=== PATIENT | female | born 1935 | race Caucasian/White ===

== ENCOUNTER 2022-10-08 13:06 | Outpatient (CLI) | payer MEDICARE, BC, SELFPAY | END 2022-10-08 13:07 | disposition home or self-care (01) | LOC: AMB 10-10 10:19 | PROVIDERS: PCP Family Medicine; Visit Provider Emergency Medicine Emergency Medical Services | DX: M79.605 Pain in left leg (principal) | CPT/HCPCS: A0425; A0429 ==

== ENCOUNTER 2022-10-08 13:25 | Emergency (ER) | payer MEDICARE, BC, SELFPAY ==
[2022-10-08 13:33] VITALS: BP 143/78; PULSE 87; RESP 16; TEMP 36.6; O2SAT 96; BMI 22.5
--- NOTE | 2022-10-08 13:54 | CRLHL7_ITS ---
For Patients: As a result of the Century Cures Act, medical imaging exams and procedure reports are released immediately into your electronic medical record. You may view this report before your referring provider. If you have questions, please contact your health care provider. INDICATION: Left leg pain and redness. FINDINGS: Left lower extremity venous ultrasound was performed using grayscale imaging with color Doppler spectral analysis. The left common femoral vein, superficial femoral vein and popliteal vein are all fully compressible with spontaneous venous flow and augmentation. The peroneal vein, posterior tibial vein, greater saphenous vein an profunda femoral vein are patent. The contralateral right common femoral vein is patent. IMPRESSION: No evidence of deep venous thrombosis in the left lower extremity veins. Dictated by Jonathan William MD @ 10/08/2022 3:44:22 PM (Electronically Signed)
--- NOTE | 2022-10-08 14:19 | ED.GENADULT ---
HPI - General Adult General Date Seen: 10/08/22 Chief complaint: Extremity Pain/Injury, Lower Stated complaint: Knee Pain Time Seen by Provider: 10/08/22 13:30 Source: patient Mode of arrival: ambulatory Limitations: no limitations History of Present Illness HPI narrative: Patient is an 87-year-old woman who is here with her daughter, with whom she lives, for evaluation of pain in her left calf. She says she was watching TV last night, and when she got up she noticed that she had pain when she walked, in her left calf area. It is not swollen but she has noted some redness in a patchy pattern on the back of her calf up to the level of her knee. She does not have any redness farther up than that. She says otherwise she has been feeling fine, she denies any fevers, chills, nausea, vomiting, shortness of breath, chest pain. He denies prior history of DVT. She says in general her health is good. She does not smoke. She is having difficulty with weight-bearing, she says that she hold her ankle still in dorsiflexion and walks on her heel, she is able to put weight on it, but when she tries to push off with her foot, she has sharp pain in her calf and is not able to walk that way. She took Tylenol last night before bed and does feel that that was helpful although by this morning it had worn off. She also says that last night when she was walking her foot looked reddish purple on top, but that is better now. Related Data Home Medications Medication Instructions Recorded Confirmed No Known Home Medications 10/08/22 10/08/22 Allergies Allergy/AdvReac Type Severity Reaction Status Date / Time No Known Drug Allergies Allergy Verified 10/08/22 13:32 Review of Systems Status of ROS: Reports: 6 or more systems reviewed and unremarkable except as noted in History and below PFSH PFS Social History Smoking Status: Never smoker How often do you have a drink containing alcohol: monthly or less AUDIT-C Alcohol total score: 1 Non-prescribed substance use: denies use service: No Exam Narrative: Exam Narrative: Vital signs as noted above. In general, an alert, well-appearing patient. Looks comfortable. Breathing easily. Head: Normocephalic, atraumatic. Eyes: Pupils are equal reactive. Extraocular movements are full. Conjunctivae are normal. Anicteric. ENT: Mucous membranes are moist. Neck: Supple without lymphadenopathy. Heart: Regular rate and rhythm. No murmur or rub. Lungs: Clear bilaterally. No increased work of breathing, crackles or wheezes. Abdomen: Soft and nontender. No organomegaly. Extremities: Well perfused. No edema. On the back of her left calf she has patchy erythema without warmth extending from just distal to mid calf up to the back of her knee. The knee itself is not painful and she has full range of motion, no effusion or erythema. Foot is normal in appearance, pulses intact, sensation is normal. Neurologic: Patient is alert and oriented to person and place. Speech is fluent. Face is symmetric. Moves all extremities equally. Affect: Normal. Skin: Warm and dry. Well perfused. Const: Vital Signs, click to edit/add: Vital Signs - 24 hr 10/08/22 13:33 Temperature 97.8 F Pulse Rate [Left P ulse Oximeter] 87 Respiratory Rate 16 Blood Pressure [Ri ght Upper Arm] 143/78 H Pulse Oximetry 96 Oxygen Delivery Me thod Room Air Documenting provider has reviewed patient's vital signs: yes Course Course Hospital Course: I did do a lower extremity Doppler to rule out DVT or superficial thrombophlebitis. This was read by Radiology as negative. She denies any injury, I do not think x-rays are going to be revealing. She does not have significant edema and does not have any systemic signs or symptoms. With pain and redness, I think it is prudent to cover for possible developing cellulitis. Will prescribe Keflex. If she is not improving over the next couple of days, follow-up with primary care. For worsening, more severe pain, significant swelling, redness, new symptoms such as fever, vomiting or chills, return to the emergency department for re-evaluation. Vital Signs Vital signs: Initial Vital Signs Temperature 97.8 F 10/08/22 13:33 Temperature Source Temporal Artery Scan 10/08/22 13:33 Pulse Rate 87 10/08/22 13:33 Pulse Rhythm Regular 10/08/22 13:33 Respiratory Rate 16 10/08/22 13:33 Blood Pressure 143/78 H 10/08/22 13:33 Blood Pressure Mean 99 10/08/22 13:33 Blood Pressure Position Sitting 10/08/22 13:33 Pulse Oximetry 96 10/08/22 13:33 Oxygen Delivery Method Room Air 10/08/22 13:33 Vital Signs Temperature 97.8 F 10/08/22 13:33 Pulse Rate 87 10/08/22 13:33 Respiratory Rate 16 10/08/22 13:33 Blood Pressure 143/78 H 10/08/22 13:33 Pulse Oximetry 96 10/08/22 13:33 Oxygen Delivery Method Room Air 10/08/22 13:33 Temperature 97.8 F 10/08/22 13:33 Pulse Rate 87 10/08/22 13:33 Respiratory Rate 16 10/08/22 13:33 Blood Pressure 143/78 H 10/08/22 13:33 Pulse Oximetry 96 10/08/22 13:33 Oxygen Delivery Method Room Air 10/08/22 13:33 Discharge Plan Discharge Clinical Impression: Cellulitis Patient Disposition: Home, Self-Care Condition: Stable Instructions: Cellulitis (ED) Additional Instructions: Antibiotic as prescribed. You can use a boot if you like for comfort. If you are not improving over the next couple of days, you should be seen in your primary care clinic for re-evaluation. You can use Tylenol as needed. If at any point you are worsening, have significant worsening redness, swelling, pain, or new symptoms such as fever, chills or vomiting, return to the emergency department. Prescriptions: No Action No Known Home Medications Follow Up/Referrals: Berna Solis MD [Primary Care Provider] - Stand Alone Forms: [email or web address] Info Instructions
== END 2022-10-08 16:28 | disposition home or self-care (01) ==
PROVIDERS: Emergency Provider Emergency Medicine; PCP Family Medicine
DX: L03.116 Cellulitis of left lower limb (principal)
CPT/HCPCS: 93971; 99283; 99284

== ENCOUNTER 2022-10-13 07:44 | Outpatient (CLI) | payer MEDICARE, BC, SELFPAY | END 2022-10-13 07:45 | disposition home or self-care (01) | PROVIDERS: PCP Family Medicine; Visit Provider Family Medicine | DX: L03.90 Cellulitis, unspecified (principal); E55.9 Vitamin D deficiency, unspecified; E78.5 Hyperlipidemia, unspecified | CPT/HCPCS: 80053; 80061; 82306; 82607 ==

== ENCOUNTER 2022-10-29 16:47 | Emergency (ER) | payer MEDICARE, BC, SELFPAY ==
[2022-10-29 16:59] VITALS: BP 145/79; PULSE 98; RESP 18; TEMP 37.2; O2SAT 94; BMI 22.5
--- NOTE | 2022-10-29 17:10 | ED_ITS ---
HPI - Fall General Time Seen by Provider: 17:10 Date Seen: 10/29/22 Chief Complaint: Fall/Minor Trauma Stated Complaint: fell, arm in pain Time Seen by Provider: 10/29/22 16:48 Source: patient and RN notes reviewed Mode of arrival: ambulatory Limitations: no limitations History of Present Illness HPI Narrative: Patient is an 87-year-old female presenting to the ED of her own accord accompanied by her daughter after a fall in the garage. She was on the deck of the lawn more, went to step down into the carpeted garage cement floor. Her left foot caught on something and she fell forward. She landed on her knees, right elbow, right chest wall. Her elbow and her chest wall hurts the most. She declines any need for any pain management. She states she has broke her right ribs before. She maybe bumped her head in the fall but is having absolutely no head pain, there is no loss of consciousness. She hurts no where in her head, cannot feel any bumps. She is not on any blood thinners. She has no neck pain. There was nothing other than her foot catching that cause the fall. No numbness tingling in any of the extremities. If she moves her elbow at all, she gets shooting pain into the forearm, feels pain in the elbow and the forearm. She has no pain in her legs with ambulating. complaint: fall Onset (ago): minute(s) Fall from: standing Fall witnessed: no Place fall occurred: home Loss of consciousness: No Prolonged down time: no Symptoms prior to fall: none Context: tripped/slipped Location of injury: chest Location of injury - extremities: Right: elbow and forearm Related Data Home Medications Medication Instructions Recorded Confirmed cephalexin 500 mg capsule 500 mg PO QID 10/13/22 10/13/22 Allergies Allergy/AdvReac Type Severity Reaction Status Date / Time hayfever Allergy Unknown Uncoded 10/13/22 07:15 Review of Systems Status of ROS: Reports: 10 or more systems reviewed and unremarkable except as noted in History and below [facility] Medical History (Updated 10/29/22 @ 18:45 by Lorena Allen MD) Arthritis of hip ?M16.10 - Unilateral primary osteoarthritis, unspecified hip (ICD-10) Closed fracture of vertebra Closed head injury (11/2021) ?S09.90XA - Unspecified injury of head, initial encounter (ICD-10) Fracture of right fibula ?S82.401A - Unspecified fracture of shaft of right fibula, initial encounter for closed fracture (ICD-10) History of acute pancreatitis (2002) ?Z87.19 - Personal history of other diseases of the digestive system (ICD-10) Vaccination refused by patient (~2020) ?Z28.21 - Immunization not carried out because of patient refusal (ICD-10) Surgical History History of cholecystectomy (1984) ?Z90.49 - Acquired absence of other specified parts of digestive tract (ICD- 10) History of hip surgery (~2017) ?Z98.890 - Other specified postprocedural states (ICD-10) History of hysterectomy for benign disease (1975) ?Z90.710 - Acquired absence of both cervix and uterus (ICD-10) Social History Narrative: , 3 adult children, retired exercise involving housework, yard work, hauling wood, chopping wood, mowing 6 acres nonsmoker 1 alcoholic drink a week Smoking Status: Never smoker Do you use any of these nicotine containing products: None Second hand tobacco smoke exposure: No How often do you have a drink containing alcohol: monthly or less How many standard drinks containing alcohol do you have on a typical day: 1 or 2 How often do you have six or more drinks on one occasion: Never AUDIT-C Alcohol total score: 1 Non-prescribed substance use: denies use service: No Exam Const: Vital Signs, click to edit/add: Vital Signs - 24 hr 10/29/22 16:59 Temperature 98.9 F Pulse Rate [Pulse Oximeter] 98 Respiratory Rate 18 Blood Pressure [Le ft Upper Arm] 145/79 H Pulse Oximetry 94 Oxygen Delivery Me thod Room Air Documenting provider has reviewed patient's vital signs: yes Common normals: no apparent distress, average body habitus, oriented x3, no limitations, healthy appearing and alert General appearance: cooperative, comfortable, well kempt and well developed HENMT: Common normals: normocephalic, head/scalp atraumatic, hearing grossly normal bilaterally, external ears normal, external nose normal, nasal mucous membranes and turbinates normal, moist oral mucous membranes and oropharynx normal Head and scalp: normocephalic and atraumatic Nose: external nose normal and nasal mucous membranes and turbinates normal External ear: external ears normal Other: Face is atraumatic. Eye: Common normals: PERRL, EOMs intact bilaterally, conjunctivae normal and no scleral icterus Conjunctiva: conjunctiva(e) normal Pupil: PERRL Neck & C-Spine: Common normals: full ROM (Absolutely no tenderness), no lymphadenopathy and supple Chest: Common normals: inspection of chest normal Other: Pain on right anterolateral lower chest wall, no crepitus or step-off noted. Resp: Common normals: normal respiratory effort, no retractions, no use of accessory muscles and clear to auscultation bilaterally Auscultation: clear to auscultation bilaterally Cardio: Common normals: regular rate, regular rhythm, S1 normal heart sound, S2 normal heart sound, no gallops, no clicks and no murmurs Rate: regular rate Rhythm: regular rhythm Heart sounds: S1 normal and S2 normal GI: Common normals: Normal to inspection, nondistended, normoactive bowel sounds present, soft to palpation, non-tender, no hepatosplenomegaly and no masses Palpation: soft and no hepatosplenomegaly Extremity: Other: Patient has some general swelling of the soft tissues about the elbow. She is holding her elbow on a pillow at about just over 90? flexion. I cannot supinate pronate the forearm at all otherwise gives her pain. She seems to be tender medially but not definitely over the lateral epicondyle. Olecranon process does not seem to be that tender. When I palpate down her upper forearm, she does state it is sore and tender. Wrist is nontender fingers can flex and extend, does not seem to have any pain throughout her wrist or hand on that side. Distal sensation is normal in the right hand. Right arm above the elbow is nontender, no pain over the glenohumeral joint. Left arm unaffected. She has got a very superficial abrasion underneath the bandage that was looked under on her right knee. Both knee joints are nontender fully mobile. She states she can walk without pain. She has a bruise on the mid anterior left tibia, no open wounds. This reportedly was a leg affected with cellulitis, inspection of the skin reveals no residual changes. Neuro: [place] Coma Scale: document GCS findings Christine coma scale eye opening: Spontaneous (4) [place] coma scale verbal response: Orientated (5) [place] coma scale motor response: Obey commands (6) [place] coma scale total score: 15 Common normals: oriented x3 Sensorium/orientation: alert Psych: Appearance: well kempt Course Course Hospital Course: Patient sustained a fall due to a trip. She absolutely has no head symptoms, no pain or lesions anywhere on her head scalp or neck. At this time I am inclined to forego any neuro imaging, she does not feel she needs it. She is having no headache, absolutely has no pain. She feels if she did bump her head it must have been minimal. She is not on any blood thinners. We will continue to observe her here. As far as imaging, does need x-rays of her right ribs and chest, x-rays of her right elbow and forearm. Reevaluation(s) Reevaluation #1: Have reviewed with patient and her daughter that there is no visible fracture of the chest wall, they do understand that there still could be underlying fracture that we just cannot see as there is no displacement, sometimes we cannot see until healing with callous. We discussed the problems with radial head fractures and limiting elbow ROM sometimes due to fracture and certainly can happen due to immobilization. Will need orthopedic follow up, they can refer to PT (likely will be recommended). In meantime, sling for comfort. Ice, elevate, Tylenol. Time: 18:38 Vital Signs Vital signs: Initial Vital Signs Temperature 98.9 F 10/29/22 16:59 Temperature Source Temporal Artery Scan 10/29/22 16:59 Pulse Rate 98 10/29/22 16:59 Pulse Rhythm Regular 10/29/22 16:59 Respiratory Rate 18 10/29/22 16:59 Blood Pressure 145/79 H 10/29/22 16:59 Blood Pressure Mean 101 10/29/22 16:59 Blood Pressure Position Supine 10/29/22 16:59 Pulse Oximetry 94 10/29/22 16:59 Oxygen Delivery Method Room Air 10/29/22 16:59 Vital Signs Temperature 98.9 F 10/29/22 16:59 Pulse Rate 98 10/29/22 16:59 Respiratory Rate 18 10/29/22 16:59 Blood Pressure 145/79 H 10/29/22 16:59 Pulse Oximetry 94 10/29/22 16:59 Oxygen Delivery Method Room Air 10/29/22 16:59 Temperature 98.9 F 10/29/22 16:59 Pulse Rate 98 10/29/22 16:59 Respiratory Rate 18 10/29/22 16:59 Blood Pressure 145/79 H 10/29/22 16:59 Pulse Oximetry 94 10/29/22 16:59 Oxygen Delivery Method Room Air 10/29/22 16:59 MDM - Fall Imaging Data Chest x-ray: Attestation: I have reviewed the pertinent imaging results. Radiologist's impression: Patient: ANA TAYLOR Facility:?[facility] Patient ID:?[id number] Site Patient ID:?[id number]. Site :?[id number] Study:?XRay Chest W/RIBS-10/29/2022 5:46:44 PM Ordering Physician:Juanpablo Carrillo Final Report: INDICATION: Trauma. Fall. TECHNIQUE: PA chest and 3 detailed views of the right-sided ribs. FINDINGS: Both lungs are mildly hyperinflated. Slight fibrosis or atelectasis at the right lung base. No pneumothorax. Normal heart size. Detailed views the right-sided ribs do not convincingly demonstrate acute displaced right-sided rib fractures. Subtle nondisplaced rib fractures can be overlooked on plain radiography. Surgical clips right upper quadrant. IMPRESSION: Minor fibrosis or atelectasis right lung base. No acute cardiopulmonary process identified. No acute displaced right-sided rib fractures are identified. Further imaging evaluation such as with CT should be based on clinical grounds. Dictated by Casimiro Storm MD @ 10/29/2022 6:01:21 PM (Electronic Signature) X-ray right elbow: My impression: I see a radial head fracture on my preliminary review of her elbow. Radiologist's impression: Patient: ANA TAYLOR Facility:?[facility] Patient ID:?[id number] Site Patient ID:?[id number]. Site :?[id number] Study:?XRay Extremity Right ELBOW-10/29/2022 5:47:12 PM Ordering Physician:?Tiffany Carrillo Final Report: INDICATION: Trauma. Fall. Pain. TECHNIQUE: Three views of the right elbow. FINDINGS: Acute complete nondisplaced intra-articular right radial head/neck fracture with associated soft tissue swelling/elbow effusion. The examination is otherwise negative. IMPRESSION: Non distracted fracture of the right radial head/neck with an anterior elbow effusion. Dictated by Casimiro Storm MD @ 10/29/2022 6:04:41 PM (Electronic Signature) X-ray right forearm: Attestation: I have reviewed the pertinent imaging results. Radiologist's impression: Patient: ANA TAYLOR Facility:?[facility] Patient ID:?[id number] Site Patient ID:?[id number]. Site :?[id number] Study:?XRay Extremity Right FOREARM-10/29/2022 5:45:33 PM Ordering Physician:?Tiffany Carrillo Final Report: INDICATION: Trauma. Fall. Pain. TECHNIQUE: Two views of the right forearm. FINDINGS: Nondisplaced intra-articular fracture radial head and neck. No other fractures are confidently identified. Specifically no mid or distal right radial and ulnar fractures are identified. IMPRESSION: Intra-articular right radial head and neck fracture. No other fractures are confidently identified. Dictated by Casimiro Storm MD @ 10/29/2022 6:03:36 PM (Electronic Signature) Critical Care Time Critical Care Time Critical Care Time: No Discharge Plan Discharge Clinical Impression: Acute chest wall pain, Closed fracture of radial head, Fall Patient Disposition: Home, Self-Care Condition: Stable Instructions: Elbow Fracture (ED), Chest Wall Pain (ED) Additional Instructions: Sling for comfort of the right elbow. Ice, elevate to help diminish pain. Tylenol 1000 mg up to 3 times a day for pain management. Need to call Orthopedic office Monday to get scheduled for follow-up, phone number is [phone]. Prescriptions: No Action cephalexin 500 mg capsule 500 mg PO QID Follow Up/Referrals: eBrna Solis MD [Primary Care Provider] - Stand Alone Forms: [employer] Info Instructions
--- NOTE | 2022-10-29 17:16 | CRLHL7_ITS ---
For Patients: As a result of the Century Cures Act, medical imaging exams and procedure reports are released immediately into your electronic medical record. You may view this report before your referring provider. If you have questions, please contact your health care provider. INDICATION: Trauma. Fall. TECHNIQUE: PA chest and 3 detailed views of the right-sided ribs. FINDINGS: Both lungs are mildly hyperinflated. Slight fibrosis or atelectasis at the right lung base. No pneumothorax. Normal heart size. Detailed views the right-sided ribs do not convincingly demonstrate acute displaced right-sided rib fractures. Subtle nondisplaced rib fractures can be overlooked on plain radiography. Surgical clips right upper quadrant. IMPRESSION: Minor fibrosis or atelectasis right lung base. No acute cardiopulmonary process identified. No acute displaced right-sided rib fractures are identified. Further imaging evaluation such as with CT should be based on clinical grounds. Dictated by Casimiro Storm MD @ 10/29/2022 6:01:21 PM (Electronically Signed)
--- NOTE | 2022-10-29 17:16 | CRLHL7_ITS ---
For Patients: As a result of the Cures Act, medical imaging exams and procedure reports are released immediately into your electronic medical record. You may view this report before your referring provider. If you have questions, please contact your health care provider. INDICATION: Trauma. Fall. Pain. TECHNIQUE: Two views of the right forearm. FINDINGS: Nondisplaced intra-articular fracture radial head and neck. No other fractures are confidently identified. Specifically no mid or distal right radial and ulnar fractures are identified. IMPRESSION: Intra-articular right radial head and neck fracture. No other fractures are confidently identified. Dictated by Casimiro Storm MD @ 10/29/2022 6:03:36 PM (Electronically Signed)
--- NOTE | 2022-10-29 17:16 | CRLHL7_ITS ---
For Patients: As a result of the Century Cures Act, medical imaging exams and procedure reports are released immediately into your electronic medical record. You may view this report before your referring provider. If you have questions, please contact your health care provider. INDICATION: Trauma. Fall. Pain. TECHNIQUE: Three views of the right elbow. FINDINGS: Acute complete nondisplaced intra-articular right radial head/neck fracture with associated soft tissue swelling/elbow effusion. The examination is otherwise negative. IMPRESSION: Non distracted fracture of the right radial head/neck with an anterior elbow effusion. Dictated by Casimiro Storm MD @ 10/29/2022 6:04:41 PM (Electronically Signed)
== END 2022-10-29 19:01 | disposition home or self-care (01) ==
PROVIDERS: Emergency Provider Family Medicine; PCP Family Medicine
DX: R07.89 Other chest pain (principal); S52.121A Displaced fracture of head of right radius, initial encounter for closed fracture; S52.131A Displaced fracture of neck of right radius, initial encounter for closed fracture; W10.8XXA Fall (on) (from) other stairs and steps, initial encounter
CPT/HCPCS: 71101; 73080; 73090; 99284; 99285

== ENCOUNTER 2022-12-28 13:38 | Outpatient (CLI) | payer MEDICARE, BC, SELFPAY ==
--- NOTE | 2022-12-28 14:00 | CRLHL7_ITS ---
For Patients: As a result of the Century Cures Act, medical imaging exams and procedure reports are released immediately into your electronic medical record. You may view this report before your referring provider. If you have questions, please contact your health care provider. DXA BONE MINERAL DENSITY STUDY Reason for exam: History of surgical pinning left hip. Current height (in): 64. Weight (lb): 135. Menopause age: Not provided. Ethnicity: White. 1. Have you had a previous hip or vertebral fracture? Yes. 2. Have you had any fractures during your adult life which did not result from significant trauma (e.g., auto accident)? Yes. 3. Did either of your parents have a hip fracture? No. 4. Do you smoke? No. 5. Have you ever taken Glucocorticoids? No. 6. Do you have rheumatoid arthritis? No. 7. Do you have secondary osteoporosis? No. 8. Do you drink 3 or more alcoholic drinks per day? No. 9. Are you being treated for osteoporosis? No. 10. Have you ever taken any of the following medications: Actonel, Evista, Fosamax, Miacalcin, Reclast, Boniva, Forteo, HRT (i.e., estrogen/hormone therapy), Protelos, Prolia, Vitamin D, Calcium, other ??? please specify. ANSWER: Yes, vitamin D and calcium. 11. Do you have any of the following medical conditions: Anorexia or bulimia, asthma or emphysema, end stage renal disease, hyperparathyroidism, any seizure disorders, cancer, inflammatory bowel diseases, hysterectomy, other ??? please specify. ANSWER: Yes, hysterectomy. 12. What was your maximum height (inches)? 66. 13. Do you perform weight bearing exercise regularly? No. 14. Do you regularly consume dairy products? Yes. 15. Do you drink caffeinated beverages? Yes. If female: 16. At what age did your period start? 15. 17. Are you premenopausal? No. 18. How many full-term pregnancies have you had? 4. 19. Have you ever missed your period for more than 6 months in a row (not including or menopause)? No. TECHNIQUE: Bone mineral density study was performed using the [employer]. FINDINGS: The results of the study expressed as bone mineral density (BMD) are as follows: Lumbar spine L1 to L3: BMD: 0.950 g/cm2. T-score: -0.6. Z-score: 2.2 Neck Right: BMD: 0.697 g/cm2. T-score: -1.4. Z-score: 1.2 Total Right: BMD: 0.640 g/cm2. T-score: -2.5. Z-score: -0.1 IMPRESSION: Osteoporosis. *Comparison exams done prior to 12/2019 were performed on different unit, [facility]. COMPARISON: Compared with scan of 07/19/2017, the bone mineral density has decreased by 0.5 percent at the spine and decreased by 1.7 percent at the hip. Elan Jaimes M.D. Diagnostic/Nuclear Medicine Radiologist [email or web address] PRR/[email or web address] eduardo thibodeaux/Dictated by: Casimiro Storm MD @ 12/28/2022 3:40:00 PM (Electronically Signed)
--- NOTE | 2022-12-28 14:40 | CRLHL7_ITS ---
For Patients: As a result of the Century Cures Act, medical imaging exams and procedure reports are released immediately into your electronic medical record. You may view this report before your referring provider. If you have questions, please contact your health care provider. BILATERAL SCREENING MAMMOGRAM WITH COMPUTER-AIDED DETECTION TECHNIQUE: CC and MLO views were obtained. These mammographic images have been obtained using full-field digital technique. These mammographic images were interpreted with the benefit of computer-aided detection. COMPARISON FILM: 07/14/14, 06/26/14. FINDINGS: There are scattered areas of fibroglandular density. IMPRESSION: There is no radiographic evidence for malignancy. ASSESSMENT: BI-RADS Category 2: Benign RECOMMENDATION: Routine screening mammogram in 1 year. A lay language report of this examination will be provided to the patient. IVAN ELAINE M.D. Diagnostic/Nuclear Medicine Radiologist [email or web address] ROSA:[email or web address] Transcribed: 12/29/2022, 2:[address]/Dictated by: Ivan Elaine MD @ 12/29/2022 8:50:00 AM (Electronically Signed)
== END 2022-12-28 13:39 | disposition home or self-care (01) ==
PROVIDERS: PCP Family Medicine; Visit Provider Family Medicine
DX: Z12.31 Encounter for screening mammogram for malignant neoplasm of breast (principal); M85.80 Other specified disorders of bone density and structure, unspecified site; M81.0 Age-related osteoporosis without current pathological fracture; Z78.0 Asymptomatic menopausal state
CPT/HCPCS: 77067; 77080

== ENCOUNTER 2023-06-08 12:29 | Outpatient (CLI) | payer MEDICARE, BC, SELFPAY ==
--- NOTE | 2023-06-08 14:05 | W.ANESCHARGE ---
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
--- NOTE | 2023-06-08 14:42 | W.ANESCHARGE ---
Anesthesia Charges Start Date/Time Anesthesia Start Date: 06/08/23 Anesthesia Start Time: 13:22 Stop Date/Time Anesthesia Stop Date: 06/08/23 Anesthesia Stop Time: 14:04 Summary Extremes of Age - Over 70 or under 1: MDA
== END 2023-06-08 12:30 | disposition home or self-care (01) ==
LOC: OP CLINIC 12:30
PROVIDERS: PCP Family Medicine; Visit Provider Surgery
DX: Z12.11 Encounter for screening for malignant neoplasm of colon (principal); K64.9 Unspecified hemorrhoids; K57.30 Diverticulosis of large intestine without perforation or abscess without bleeding
CPT/HCPCS: 00811; 00812; 45378; 99100; J2704

== ENCOUNTER 2023-06-15 08:33 | Outpatient (CLI) | payer MEDICARE, BC, SELFPAY ==
--- NOTE | 2023-06-15 09:15 | CRLHL7_ITS ---
For Patients: As a result of the Century Cures Act, medical imaging exams and procedure reports are released immediately into your electronic medical record. You may view this report before your referring provider. If you have questions, please contact your health care provider. Technique: Double contrast barium enema exam was attempted. Examination could not be completed due to persistent leakage and inability to maintain contrast in the colon. Fluoroscopy time 2 minutes 32 seconds. Indication: Incomplete colonoscopy, pneumaturia Comparison: None. Findings: Sigmoid diverticulosis is present involving the distal sigmoid colon. The rectum appears normal. There is narrowing of the mid sigmoid colon. Contrast only extends to the proximal sigmoid colon. Impression: Incomplete evaluation due to inability to hold contrast and with persistent contrast leakage. Diverticulosis noted. There is narrowing of the mid sigmoid colon. CT could be considered for further evaluation. Dictated by Ariel Gruber MD @ 06/15/2023 11:42:43 AM (Electronically Signed)
== END 2023-06-15 08:34 | disposition home or self-care (01) ==
LOC: RAD 08:34
PROVIDERS: PCP Family Medicine; Visit Provider Surgery
DX: R39.89 Other symptoms and signs involving the genitourinary system (principal)
CPT/HCPCS: 74280

== ENCOUNTER 2023-06-21 13:49 | Outpatient (CLI) | payer MEDICARE, BC, SELFPAY ==
[2023-06-21 14:35] LABS: Creatinine* 0.7 mg/dL (0.5-1.5); Estimated Glomerular Filt Rate 85 ml/min
--- NOTE | 2023-06-21 15:30 | CRLHL7_ITS ---
For Patients: As a result of the Century Cures Act, medical imaging exams and procedure reports are released immediately into your electronic medical record. You may view this report before your referring provider. If you have questions, please contact your health care provider. Indication: Constipation Technique: CT Abdomen/Pelvis w/ 63cc [id number] Please note that all CT scans at this facility use dose modulation, iterative reconstruction, and/or weight-based dosing when appropriate to reduce radiation dose to as low as reasonably achievable. Comparison: Barium enema 06/15/2023 Findings: Mild scarring is present within both lung bases. No free intraperitoneal air. Residual contrast is present within numerous sigmoid colon diverticula. There is also ingested enteric contrast within the ileum and proximal colon. No evidence of small-bowel obstruction. Mild narrowing of the distal sigmoid colon corresponds to the findings on enema. However, there is no mucosal thickening or surrounding mass. No inflammatory changes or adenopathy. There is a small amount of air within the nondependent bladder. A diverticulum extends to the posterior lateral bladder wall on the left. The liver is unremarkable with incidental focal fat deposition within the liver adjacent to the falciform ligament. The adrenal glands are normal. Normal spleen. Small hiatal hernia. Pancreas normal. Mild thickening of the adrenal glands. Normal kidneys. Degenerative changes. Postop changes left proximal femur. Degenerative joint disease of both hips. Impression: Chronic sigmoid diverticulosis with chronic luminal narrowing associated with chronic inflammation. 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 No abscess. No findings concerning for malignancy. Please note that all CT scans at this facility use dose modulation, iterative reconstruction, and/or weight-based dosing when appropriate to reduce radiation dose to as low as reasonably achievable. Dictated by Ariel Gruber MD @ 06/22/2023 11:05:13 AM (Electronically Signed)
== END 2023-06-21 13:50 | disposition home or self-care (01) ==
LOC: CT 13:50
PROVIDERS: PCP Family Medicine; Visit Provider Surgery
DX: K59.00 Constipation, unspecified (principal); K57.30 Diverticulosis of large intestine without perforation or abscess without bleeding; R39.89 Other symptoms and signs involving the genitourinary system
CPT/HCPCS: 36415; 74177; 82565; Q9967

== ENCOUNTER 2024-09-03 10:07 | Day surgery (SDC) | payer MEDICARE, BC, SELFPAY ==
[2024-09-03] VITALS (24 sets, daily range): BP systolic 82–162; BP diastolic 56–120; PULSE 61–102; RESP 14–20; TEMP 35.8–36.9; O2SAT 94–99; BMI 23.7
--- OUTSIDE RECORDS SUMMARY | 2024-09-03 10:12 | XMS_ITS | Clinical Summary ---
Author Organization [facility] Address [address] [place] [id number] Care Team Providers Care Account Representative Name Role Phone Jose L Rodriguez MD Primary Care Provider + [phone] Allergies No known active allergies Medications CALCIUM 300 MG CHEWABLE TAB 1 tab daily 0 0 9 Active CrutchIndication s:Closed fracture of distal end of left fibula, unspecified fracture morphology, initial encounter For home use. Closed fracture of distal end of left fibula. Length of need 1 month. 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 Gender Identity Not on file Sexual Orientation Not on file Obstetrics History Last Filed Vital Signs Vital Sign Reading Time Taken Comments Blood Pressure 124/81 12/08/2015 3:12 PM CDT Pulse 96 12/08/2015 3:10 PM CDT Temperature 36.8 C (98.2 F) 12/08/2015 3:12 PM CDT Respiratory Rate - - Oxygen Saturation 97% 12/08/2015 3:10 PM CDT Inhaled Oxygen Concentration - - Weight 62.1 kg (137 lb) 05/10/2010 11:09 AM CDT Height - - Body Mass Index - - Plan of Treatment Health Maintenance Due Date Last Done Comments Tdap 1948 Depression screening for age 12+ 1949 BMI (ht and wt on same day) for age 18+ 1955 Tetanus booster 1957 Pneumococcal series for age 50+ (1 of 1 - PCV) 987 Zoster (shingles) series for age 50+ (1 of 2) 06/25/19 87 DEXA/DXA scan for age 65+ 2002 RSV vaccine for adults or pr egnancy (1 - 1-dose 75+ series) 2012 COVID-19 vaccine series ( - 2023- season) 4 Influenza for age 65+ 03/10/2024 Insurance MEDICARE [facility] ONLY [facility] Care Teams Account Representative Relationship Specialty Start Date End Date Jose L Rodriguez MD PCP - General 06/03/09
--- OUTSIDE RECORDS SUMMARY | 2024-09-03 10:12 | XMS_ITS | Clinical Summary ---
Author Organization [facility] Address [address] [place] [address] Care Team Providers Care Putty Maker Name Role Phone None Reported, Pcp Primary Care Provider Unavail able Source Comments Patient records contain information from all sites at [facility]. For routine questions regarding patient records, call [phone] during business hours, M-F 8:00 AM - 5:00 PM Central Time. Record requests for emergency care only can be directed to [phone] at any time.[facility] Allergies No known active allergies Medications cholecalciferol (Vitamin D3) 50 mcg (2,000 Unit) tablet Take 50 mcg by mouth daily. Active calcium carbonate (calcium carbonate EX) 750 mg (300 mg calcium) chewable tablet Chew 1 tablet daily. 06/03/2009 Active diphenhydrAMINE (BENADRYL) 25 mg capsule Take 25 mg by mouth at bedtime as needed for sleep. Active bromelains/eddie tonin/ (MIDNITE PM ORAL) Take 6 mg by mouth at bedtime as needed (sleep). Active acetaminophen (TYLENOL) 500 mg tablet Take 2 tablets (1,000 mg total) by mouth every 6 (six) hours as needed for pain. 09/29/2023 Active ibuprofen (ADVIL,MOTRIN) 200 mg tablet Take 2 tablets (400 mg total) by mouth every 6 (six) hours as needed for pain. 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 No 09/27/2023 Humiliation, Afraid, Rape, and Kick questionnair e Answer Date Recorded Within the last year, have y ou been afraid of your partner or ex-partner? No 09/27/2023 Within the last year, have y ou been humiliated or emotionally abused in other ways by your partner or ex-partner? No Within the last year, have y ou been kicked, hit, slapped, or otherwise physically hurt by your partner or ex-partner? No 09/27/2023 Within the last year, have y ou been raped or forced to have any kind of sexual activity by your partner or ex-partner? No 09/27/2023 Exercise Vital Sign Answer Date Recorde d On average, how many days pe r week do you engage in moderate to strenuous exercise (like a brisk walk)? 1 day 09/21/2023 On average, how many minutes do you engage in exercise at this level? 30 min 09/21/2023 Hunger Vital Sign Answer Date Recorded Within the past 12 months, y ou worried that your food would run out before you got the money to buy more. Never true 09/27/19 24 Within the past 12 months, t he food you bought just didn't last and you didn't have money to get more. Never true 09/27/2023 PRAPARE - Transportation Answer Date Re corded In the past 12 months, has l ack of transportation kept you from medical appointments or from getting medications? No 09/08 In the past 12 months, has l ack of transportation kept you from meetings, work, or from getting things needed for daily living? No 09/27/2023 Nutrition Answer Date Recorded Nutrition: EVOO Fat Source Unknown 09/20 On average, how many serving s of fruits and vegetables do you eat per day (serving size is equal to 1 cup or approximately the size of a tennis ball)? 0-2 09/21/2023 Dental Answer Date Recorded Dental: Regular Dentist Yes 09/21/19 Employment Answer Date Recorded Employment status Retired 09/21/2023 Housing Stability Answer Date Recorded What is your living situation today? 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 Gender Identity Female 09/21/2023 7:36 PM CDT Sexual Orientation Straight 09/21/2023 7: 36 PM CDT Last Filed Vital Signs Vital Sign Reading Time Taken Comments Blood Pressure 129/53 09/29/2023 12:35 PM CDT Pulse 98 09/29/2023 12:35 PM CDT Temperature 36.5 C (97.7 F) 09/29/2023 12:35 PM CDT Respiratory Rate 16 09/29/2023 12:35 PM CDT Oxygen Saturation 99% 09/29/2023 12:35 PM CDT Inhaled Oxygen Concentration - - Weight 63.1 kg (139 lb 1.8 oz) 09/28/2023 8:30 A M CDT Height 162 cm (5' 3.78) 09/27/2023 6:40 AM CDT Body Mass Index 24.04 09/27/2023 6:40 AM CDT Plan of Treatment Health Maintenance Due Date Last Done Comments Hepatitis B Screening 1935 Pneumococcal vaccine (50+ ye ars) (1 of 1 - PCV) 1987 Zoster Vaccines (1 of 2) 1987 RSV vaccine - (32-3 6 weeks) or 60+ years (1 - 1-dose 75+ series) 2012 COVID-19 Vaccine ( - 2023-2 5 season) 2024 Influenza Vaccine (#1) 2024 Depression Screening (Annual PHQ-2) 07/10/2024 Fall Risk Screen (Annual) 07/10/2024 DTaP,Tdap,and Td Vaccines (2 - Td or Tdap) 10/13/2032 10/13/2022 IPV Vaccines Aged Out No longer eligi ble based on patient's age to complete this topic Medical Devices Implanted Type Area Drill Press Hand Device Identifier Shelf Expiration Date Model / Serial / Lot Hip Implant Hip Implant Left: Hip Description:Left Hip 3 pins Insurance MEDICARE [facility] Advance Directives For more information, please contact: [phone] * Full Code (Latest Code Status on File) Date Activated Date Inactivated Comments 09/27/2023 4:06 PM 09/29/2023 3:24 PM Question Answer Comments Full Code: Discussed * Full Code Date Activated Date Inactivated Comments 09/27/2023 6:56 AM 09/27/2023 4:06 PM Question Answer Comments Full Code: Discussed Care Teams Putty Maker Relationship Specialty Start Date End Date None Reported, Pcp PCP - General Family Medicine 09/27/23
[2024-09-03] MEDS: CELECOXIB 200 MG CAPSULE PO (10:15)
[2024-09-03] MEDS: LACTATED RINGERS 1000 ML 1,000 ML 100 ML IV ×2 (11:05→13:11)
[2024-09-03] MEDS: ACETAMINOPHEN 500 MG TABLET 1000 MG PO ×3 (11:20→23:51)
--- NOTE | 2024-09-03 11:32 | SUR.PREOP ---
TIME?OUT:?1140, left hip PT/RN/MDA?VERIFICATION?OF?SURGICAL?SITE,?PROCEDURE,?AND?CONSENT OBTAINED?PRIOR?TO?INVASIVE?PROCEDURE.
[2024-09-03] MEDS: MIDAZOLAM HCL 1 MG/ML inj IVP (11:48)
[2024-09-03] MEDS: fentaNYL 100 MCG/2 ML inj IVP (11:48)
--- NOTE | 2024-09-03 11:54 | P.ANES_ITS ---
Anesthesia Charges Start Date/Time Anesthesia Start Date: 09/03/24 Anesthesia Start Time: 12:04 Stop Date/Time Anesthesia Stop Date: 09/03/24 Anesthesia Stop Time: 14:42 Summary Extremes of Age - Over 70 or under 1: MDA Coding CPT Codes CPT Codes: ANESTH HIP ARTHROPLASTY - 13329 ([id number]) P2 - PATIENT W/MILD SYST DISEASE, QK - MEDICAL OFFICE SCHEDULER 2-4 CNCRNT ANES PROC, QX - CONTRACT POST OFFICE CLERK SVC W/ MD MED DIRECTION Additional Codes: Summary - Extremes of Age - Over 70 or under 1: MDA ([id number])
--- NOTE | 2024-09-03 11:54 | P.NB_ITS ---
Nerve Block Nerve Block Time Seen by Provider: 11:50 Date Seen: 09/03/24 Type of block requested by surgeon for post-operative analgesia: CALI/LFCN Side: left Time out performed: Yes Verification of patient name: Yes Verification of date of : Yes Site marking: site marked Name of person performing procedure: [place] Continuous monitoring Was continuous monitoring of O2 sat, B/P, manager cardiac cath, recorded every 15 minutes?: Yes Procedure Checklist: sterile prep, needles and gloves Ultrasound guided. Images saved: Yes Medications given in 5ml increments after negative aspiration: Ropivicaine %: 0.5 mL: 30 Needle gauge: 20 Precedex (mcg): 25 Patient tolerated procedure well: Yes Additional comments: Needle noted below psoas tendon needle noted adjacent to LFCN Block Charges Block Charge (with Pro Fee): Other Periph Nerve Block Use of Ultrasound Machine for Block: Yes- US Guidance/pain block
--- NOTE | 2024-09-03 11:54 | W.ANESCHARGE ---
Anesthesia Charges Start Date/Time Anesthesia Start Date: 09/03/24 Anesthesia Start Time: 12:04 Stop Date/Time Anesthesia Stop Date: 09/03/24 Anesthesia Stop Time: 14:42 Summary Extremes of Age - Over 70 or under 1: MDA Coding CPT Codes CPT Codes: ANESTH HIP ARTHROPLASTY - 32711 ([id number]) P2 - PATIENT W/MILD SYST DISEASE, QK - PRODUCT MARKETING ENGINEER 2-4 CNCRNT ANES PROC, QX - PRIMER EXPEDITOR AND DRIER SVC W/ MD MED DIRECTION Additional Codes: Summary - Extremes of Age - Over 70 or under 1: MDA ([id number])
[2024-09-03] MEDS: CEFAZOLIN 2 GM INJ IVP (12:20)
[2024-09-03] MEDS: TRANEXAMIC ACID 100 MG/ML INJ 1000 MG IV (12:37)
--- NOTE | 2024-09-03 14:21 | P.ORPRC_ITS ---
Procedure Note Date of procedure: 09/03/24 Procedure: PREOPERATIVE DIAGNOSIS: Left hip osteoarthritis, retained hardware left hip POSTOPERATIVE DIAGNOSIS: Left hip osteoarthritis, retained hardware left hip NAME OF OPERATION: Left total hip arthroplasty, hardware removal deep SURGEON: Woodrow Izquierdo MD TISSUE SPECIALIST: Coleen Jacobo PA-C, TENA Moreno IMPLANTS: 1. [employer] [place] #50 sector ingrowth cup 2. 32 x 50 +4 neutral polyethylene 3. [place] #6 standard collared cemented stem 4. 32 + 9 cobalt chrome femoral head ANESTHESIA: Spinal ESTIMATED BLOOD LOSS: 300 cc COMPLICATIONS: None SPECIMENS: None DRAINS: None PREOPERATIVE ANTIBIOTICS: Ancef 1 g INDICATIONS: The patient is a 89-year-old with a longstanding history of severe, unrelenting left hip pain secondary to end-stage left hip osteoarthritis. Despite appropriate nonoperative management, including activity modification, use of an assist device, anti-inflammatories, [id number] pain medication, physical therapy and injections, they continue to have pain and disability. Operative intervention was offered. She previous sustained a left femoral neck fracture treated with cannulated screws. The risks, benefits and expected outcomes were discussed in detail. These included but were not limited to: Infection, bleeding, injury to blood vessel or nerve, venous thromboembolism. All questions were answered to their satisfaction. Use of an hair or beauty salon assistant was necessary throughout the case for patient positioning and safety, soft tissue retraction and closure. PROCEDURE: Spinal anesthesia was administered. The patient was placed supine on the [place] table. The hair or beauty salon assistant made sure the patient was properly positioned. The left hip was prepped and draped in the usual sterile fashion. The image intensifier was brought in for a perfect AP pelvis and a perfect double tear dr op AP view of each hip which were used for intraoperative templating with our fluoroscopic guide. An oblique incision was made 3 cm distal and 3 cm lateral to the anterior superior iliac spine. The hair or beauty salon assistant retracted the soft tissues to protect them. Subcutaneous dissection was taken with electrocautery to the superficial fascia. The fascia was divided in line with the incision. Blunt dissection was carried medially to the tensor fascia joanna and sartorius interval. Deep dissection was carried with electrocautery. The circumflex vessels were cauterized and divided. The capsule was exposed and then divided in a T- fashion, tagged with #1 Ethibond sutures. Retractors were placed in the joint, held by the hair or beauty salon assistant. The previously placed longitudinal incision over the flare of the greater trochanter was utilized. Subcutaneous dissection was sharply taken to the fibers of the lateralis. The fibers were divided bluntly with a Brabosa elevator, exposing the heads of the cannulated screws. The screws were removed intact. The corkscrew was placed in the femoral head. The neck cut was made in the subcapital region. We made a second neck cut more distal. The napkin ring of bone was removed. The femoral head was removed intact. Acetabular retractors were placed, held by the hair or beauty salon assistant. The labrum was sharply debrided. The capsule was released. The 43 mm reamer was used to the true medial wall. We then enlarged in 2 mm increments using the image intensifier for our reamer placement. We impacted the cup which had excellent purchase. We placed the polyethylene. Attention was then turned to the proximal femur. The limb was placed in 140 degrees of external rotation, maximum extension and adduction. A significant amount of time was spent releasing the capsule to allow us to deliver the femur into the wound and complete the femoral side safely. Retractors were held by the hair or beauty salon assistant throughout the femoral preparation. The box office manager and canal finder were used. Broaches were used to a stable size. The calcar reamer was used. Trial components were placed. The hip was reduced and was found to be stable with appropriate soft tissue tension. Length and offset had been nicely restored using the image intensifier and our fluoroscopic guide. Trial components removed. The cement restrictor was placed. The canal was irrigated with post lavage and then thoroughly dried. Cement was placed retrograde and then hand pressurized. The [place] cemented stem was placed in the cement mantle in an appropriate amount of anteversion. Excess cement was removed. The cement was allowed to harden. We placed the femoral head. Again, the hip was reduced and was found to be stable with appropriate soft tissue tension. Length and offset had been nicely restored. The hair or beauty salon assistant did a three minute dilute Betadine solution soak. The hair or beauty salon assistant irrigated the wound with 3 liters of normal saline via pulse lavage. The hair or beauty salon assistant repaired the anterior capsule with a #1 Vicryl and our previously placed Ethibond sutures. The hair or beauty salon assistant closed the fascia over the tensor fascia joanna with a #1 PDO Stratafix, subcutaneous tissues with 2-0 Vicryl, skin with a running 3-0 Stratafix and glue. A dry dressing was applied by the hair or beauty salon assistant. Sponge and needle counts were correct x 2. The patient tolerated the procedure well; there were no apparent complications. They were awakened and extubated in the operating room, sent to the Post-Anesthesia Care Unit in satisfactory condition. PLAN: 1. The patient will be mobilized with physical therapy, weight-bearing as tolerates 2. Xarelto x 5 days then aspirin x 30 days will be used for DVT prophylaxis 3. The patient will be discharged once medically appropriate
--- NOTE | 2024-09-03 14:44 | P.ANES_ITS ---
Anesthesia Charges Start Date/Time Anesthesia Start Date: 09/03/24 Anesthesia Start Time: 12:04 Stop Date/Time Anesthesia Stop Date: 09/03/24 Anesthesia Stop Time: 14:42 Coding CPT Codes CPT Codes: ANESTH HIP ARTHROPLASTY - 61232 ([id number]) P3 - PATIENT W/SEVERE SYS DISEASE, QK - CATERING ATTENDANT 2-4 CNCRNT ANES PROC, QX - LEAD DESIGNER SVC W/ MD MED DIRECTION
--- NOTE | 2024-09-03 14:44 | W.ANESCHARGE ---
Anesthesia Charges Start Date/Time Anesthesia Start Date: 09/03/24 Anesthesia Start Time: 12:04 Stop Date/Time Anesthesia Stop Date: 09/03/24 Anesthesia Stop Time: 14:42 Coding CPT Codes CPT Codes: ANESTH HIP ARTHROPLASTY - 12287 ([id number]) P3 - PATIENT W/SEVERE SYS DISEASE, QK - SCALE EXPERT 2-4 CNCRNT ANES PROC, QX - SIGHTSEEING GUIDE SVC W/ MD MED DIRECTION
--- NOTE | 2024-09-03 15:17 | SUR.PHASEI ---
patient met discharge criteria per anesthesia
--- NOTE | 2024-09-03 17:42 | PM.IMCN1 ---
Date of Consult Patient: [facility] Patient Consult date: 09/03/24 Requesting Physician: Orthopedics Primary Care Provider: Berna Solis MD Consult Narrative Narrative: Emily Mercado is a 89 year old female admitted to the hospital for left total hip arthroplasty. Procedure performed today by Dr. Izquierdo. He requests consultation for management of medical problems perioperatively. Surgery was without complications. 300 mL of blood loss. Postoperatively patient reports not having significant concerns with pain but she is feeling quite chilled and is attempting to warm up now. No nausea or dyspnea. Preoperatively she was otherwise feeling well when she came to the hospital today. No recent illness. Preop physical 1 week ago identified no significant concerns. Review of Systems Narrative: She reports no active medical problems or active health concerns at this time except as noted above. 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 (ICD-10) Skin lesion of face ?L98.9 - Disorder of the skin and subcutaneous tissue, unspecified (ICD-10) Health care directive on file ?Z78.9 - Other specified health status (ICD-10) Blood in the stool ?K92.1 - Melena (ICD-10) Osteopenia (07/2017) ?M85.80 - Other specified disorders of bone density and structure, unspecified site (ICD-10) Rosacea ?L71.9 - Rosacea, unspecified (ICD-10) Vaccination refused by patient (~2020) ?Z28.21 - Immunization not carried out because of patient refusal (ICD-10) History of acute pancreatitis (2002) ?Z87.19 - Personal history of other diseases of the digestive system (ICD-10) Fracture of right fibula ?S82.401A - Unspecified fracture of shaft of right fibula, initial encounter for closed fracture (ICD-10) Closed head injury (11/2021) ?S09.90XA - Unspecified injury of head, initial encounter (ICD-10) Closed fracture of vertebra Arthritis of hip ?M16.10 - Unilateral primary osteoarthritis, unspecified hip (ICD-10) Surgical History (Updated 09/03/24 @ 17:47 by Jonathan Turcios MD) S/P total left hip arthroplasty ?Z96.642 - Presence of left artificial hip joint (ICD-10) Hx of abdominal surgery (09/2023) ?Z98.890 - Other specified postprocedural states (ICD-10) Hx of cystoscopy ?Z98.890 - Other specified postprocedural states (ICD-10) History of colonoscopy (05/2023) ?Z98.890 - Other specified postprocedural states (ICD-10) History of hip surgery (~2016) ?Z98.890 - Other specified postprocedural states (ICD-10) History of hysterectomy for benign disease (1975) ?Z90.710 - Acquired absence of both cervix and uterus (ICD-10) History of cholecystectomy (1984) ?Z90.49 - Acquired absence of other specified parts of digestive tract (ICD-10) Social History (Updated 09/03/24 @ 17:54 by Jonathan Turcios MD) Narrative: She lives in her own home with her daughter Malia. Daughter Malia is power of ip attorney for healthcare. Her house has a front entrance which has 3 steps and a back entrance which has 1 step in but then flight of stairs to get to the main level. She normally uses the back entrance. Once on the main level she can get about without doing stairs. , 3 adult children, retired exercise involving housework, yard work, hauling wood, chopping wood, mowing 6 acres nonsmoker 1 alcoholic drink a week Code status is DNR What is your current living situation?: I presently have a place to live Problems where you live: no known problems In the past 12 months, utilities in danger of being shut off: no In past 12 months, lack of transportation kept you from medical appts, meetings, work, or getting things needed for daily living: no In the past 12 mos, have been you worried that your food would run out before you had money to buy more?: never true In the past 12 mos, the food you bought just didn't last and you didn't have money to buy more?: never true Smoking Status: Never smoker Do you use any of these nicotine containing products: None Second hand tobacco smoke exposure: No How often do you have a drink containing alcohol: 2-4 times a month Alcohol type: wine How many standard drinks containing alcohol do you have on a typical day: 1 or 2 How often do you have six or more drinks on one occasion: Never AUDIT-C Alcohol total score: 2 Non-prescribed substance use: denies use How often does anyone, including family, friends and others, physically hurt you: never How often does anyone, including family, friends and others, insult or talk down to you: never How often does anyone, including family, friends and others, threaten you with harm: never How often does anyone, including family, friends and others, scream or curse at you: never service: No Meds Home Medications and Allergies Home Medications ?Medication ?Instructions ?Recorded ?Confirmed ?Type cholecalciferol (vitamin D3) 50 50 mcg PO QDAY 12/21/23 09/03/24 History mcg (2,000 unit) capsule alendronate 70 mg tablet 70 mg PO QWEEK 08/14/24 09/03/24 History calcium carbonate 600 mg PO QDAY 08/27/24 09/03/24 History Allergies Allergy/AdvReac Type Severity Reaction Status Date / Time No Known Allergies Allergy Unknown Verified 09/03/24 10:22 Exam Narrative: Exam Narrative: She is alert and appears in no distress. She gives her own history. Head is normal. Eyes normal. Oropharynx normal. Neck is supple without mass or adenopathy. Respirations are clear to auscultation. Cardiovascular: S1, S2, regular rate and rhythm. No murmur gallop or rub. Abdomen: Bowel sounds active. Abdomen is soft without tenderness or mass. Left hip with incision covered by bandages. No erythema or staining on the dressings. No unusual bruising or swelling. Distal extremities without edema she has intact pulses motion and sensation. Const: Vital Signs, click to edit/add: Vital Signs - 24 hr 09/03/24 10:49 09/03/24 11:45 09/03/24 11:50 Temperature 98.5 F Pulse Rate 102 H 95 80 Respiratory Rate 20 20 20 Blood Pressure 145/94 H 162/120 H 126/75 Pulse Oximetry 95 98 98 Oxygen Delivery Me thod Room Air Nasal Cannula Nasal Cannula Oxygen Flow Rate 2 2 09/03/24 14:38 09/03/24 14:40 09/03/24 14:45 Temperature 97 F L 97 F L 97 F L Pulse Rate 92 95 79 Respiratory Rate 15 14 14 Blood Pressure 97/57 L 82/59 L 118/66 Pulse Oximetry 96 94 94 Oxygen Delivery Me thod Room Air Room Air Room Air Oxygen Flow Rate 09/03/24 14:50 09/03/24 14:55 09/03/24 15:00 Temperature 97 F L 97 F L 97 F L Pulse Rate 78 79 85 Respiratory Rate 14 14 14 Blood Pressure 103/68 111/63 105/69 Pulse Oximetry 99 98 99 Oxygen Delivery Me thod Room Air Room Air Room Air Oxygen Flow Rate 09/03/24 15:05 Temperature 97.4 F L Pulse Rate 76 Respiratory Rate 15 Blood Pressure 102/87 Pulse Oximetry 97 Oxygen Delivery Me thod Room Air Oxygen Flow Rate Documenting provider has reviewed patient's vital signs: yes Assessment and Plan Assessment and plan (1) S/P total left hip arthroplasty: Problem comment: 09/03/2024, Dr. Izquierdo, no complications Status: Acute (2) Osteoporosis: Problem comment: Recently started on Fosamax as well as vitamin-D and calcium. Status: Acute (3) Constipation: Status: Acute Plan She is admitted to the hospital for postoperative management of left hip arthroplasty. Anticipate routine management of pain, routine therapy and routine postoperative cares. Probable discharge to home tomorrow. Discussed postoperative VT prophylaxis and management of pain and constipation and mobility within the home. Total Time Spent Total Time Spent: Total time spent today is 30 minutes in coordination of care, reviewing past medical history and discussing with patient and daughter ongoing management of recovery from hip surgery
[2024-09-03] MEDS: CEFAZOLIN 1 GM in 0.9 % SODIUM CHLORIDE Mini-bag 100 ML IVPB (19:37)
--- NOTE | 2024-09-03 23:01 | PC.NURSE ---
Pt arrived to the floor at 1510. Alert, oriented and vitally stable. Pt reports minimal pain throughout shift, pain with movement rated 4/10. Pt urinating appropriately, up via SBA, on regular diet and tolerates well. Pt in bed, appears to be resting, call light within reach.
[2024-09-04 00:51] VITALS: RESP 16; O2SAT 95
[2024-09-04] MEDS: CEFAZOLIN 1 GM in 0.9 % SODIUM CHLORIDE Mini-bag 100 ML IVPB (01:38)
[2024-09-04 02:46] VITALS: BP 102/53; PULSE 82; RESP 16; TEMP 36.6; O2SAT 96
[2024-09-04] MEDS: OXYCODONE 5 MG TABLET PO ×2 (04:47→08:12)
[2024-09-04] MEDS: ACETAMINOPHEN 500 MG TABLET 1000 MG PO (05:38)
--- NOTE | 2024-09-04 06:18 | PC.NURSE ---
End of shift [id number]: A&O pleasant and cooperative. VSS and maintaining sats >90% on RA. pt reporting pain in right hip 0-6/10. see eMAR for interventions. dressing to hip c/d/i. + CMS w/ strong plantar/dorsi flexion. denies any n/v dizziness or lightheadedness. tolerating diet. ambulating to the bathroom w/ SBA fww and GB. intermittent ice to site. ice off now per pt request. using call light appropriately.
[2024-09-04 06:26] LABS: Basophils Absolute Auto 0.02 K/uL (0.00-0.30); Basophils Percent Auto 0.2 % (0.0-3.0); Eosinophils Absolute Auto 0.02 K/uL (0.00-0.50); Eosinophils Percent Auto 0.2 % (0.0-7.0); Hematocrit 34.7 % (33.0-51.0); Hemoglobin* 11.1 gm/dL (12.0-16.0); Immature Granulocytes Abs Auto 0.02 K/uL (0.00-0.30); Immature Granulocytes Pct Auto 0.2 %; Lymphocytes Percent Auto 12.8 % (20-44); Mean Corpuscular HGB Conc 32 gm/dL (32-36); Mean Corpuscular Hemoglobin 30 pg (26-34); Mean Corpuscular Volume 95 fL (80-100); Monocytes Percent Auto 9.7 % (0.0-11.0); Neutrophils Percent Auto 76.9 % (42.0-72.0); Platelet Count* 244 K/uL (140-440); RDW Coefficient of Variation % 12.7 % (11.5-15.5); Red Blood Count 3.65 m/uL (4.00-5.20); White Blood Count* 9.63 K/uL (4.50-11.00)
[2024-09-04 06:40] LABS: Slide Review Reflex No
[2024-09-04 06:54] LABS: Potassium* 4.3 mmol/L (3.6-5.1); Sodium* 134 mmol/L (135-149)
[2024-09-04 06:57] LABS: Blood Urea Nitrogen* 18 mg/dL (7-30); Creatinine* 0.7 mg/dL (0.5-1.5); Est. Creatinine Clearance* 32.79; Estimated Glomerular Filt Rate 84 ml/min
--- NOTE | 2024-09-04 07:58 | PM.ORPN ---
Subjective Subjective Time Seen by Provider: 07:59 Date Seen: 09/04/24 Principal diagnosis: Status post left hip hardware removal and total hip arthroplasty 09/03/2024 Interval history: Emily is comfortable this morning in her bed. She has been walking. She states she did not have pain with ambulating. She denies nausea, vomiting, dizziness, lightheadedness. Ortho Exam Narrative Exam Narrative: Alert and oriented x3. Patient is in no acute distress. Converses without labored breathing. Hearing is grossly intact. Ambulates with a Walker. Examination of the left hip shows mild soft tissue edema. Two dressings are in place and intact. CMS intact left lower extremity. Calves are soft and nontender. Quad strength 5/5. Const Vital Signs, click to edit/add: Vital Signs - 24 hr 09/03/24 10:49 09/03/24 11:45 09/03/24 11:50 Temperature 98.5 F Pulse Rate 102 H 95 80 Pulse Rate [Right Pulse Oximeter] Respiratory Rate 20 20 20 Blood Pressure 145/94 H 162/120 H 126/75 Blood Pressure [Left Arm] Pulse Oximetry 95 98 98 Oxygen Delivery Method Room Air Nasal Cannula Nasal Cannula Oxygen Flow Rate 2 2 09/03/24 14:38 09/03/24 14:40 09/03/24 14:45 Temperature 97 F L 97 F L 97 F L Pulse Rate 92 95 79 Pulse Rate [Right Pulse Oximeter] Respiratory Rate 15 14 14 Blood Pressure 97/57 L 82/59 L 118/66 Blood Pressure [Left Arm] Pulse Oximetry 96 94 94 Oxygen Delivery Method Room Air Room Air Room Air Oxygen Flow Rate 09/03/24 14:50 09/03/24 14:55 09/03/24 15:00 Temperature 97 F L 97 F L 97 F L Pulse Rate 78 79 85 Pulse Rate [Right Pulse Oximeter] Respiratory Rate 14 14 14 Blood Pressure 103/68 111/63 105/69 Blood Pressure [Left Arm] Pulse Oximetry 99 98 99 Oxygen Delivery Method Room Air Room Air Room Air Oxygen Flow Rate 09/03/24 15:05 09/03/24 15:10 09/03/24 15:18 Temperature 97.4 F L 96.4 F L 97.6 F Pulse Rate 76 72 Pulse Rate [Right Pulse Oximeter] Respiratory Rate 15 14 16 Blood Pressure 102/87 106/74 Blood Pressure [Left Arm] Pulse Oximetry 97 96 96 Oxygen Delivery Method Room Air Room Air Room Air Oxygen Flow Rate 2 09/03/24 15:30 09/03/24 15:45 09/03/24 16:00 Temperature 96.9 F L 96.9 F L Pulse Rate 74 67 69 Pulse Rate [Right Pulse Oximeter] Respiratory Rate 14 14 14 Blood Pressure 111/63 117/65 125/74 Blood Pressure [Left Arm] Pulse Oximetry 98 96 97 Oxygen Delivery Method Room Air Room Air Oxygen Flow Rate 09/03/24 16:15 09/03/24 16:30 09/03/24 16:30 Temperature 97.5 F L 97.6 F Pulse Rate 76 95 61 Pulse Rate [Right Pulse Oximeter] Respiratory Rate 16 16 16 Blood Pressure 121/70 114/68 119/71 Blood Pressure [Left Arm] Pulse Oximetry 95 96 95 Oxygen Delivery Method Room Air Room Air Oxygen Flow Rate 2 09/03/24 17:00 09/03/24 18:00 09/03/24 18:29 Temperature 97.6 F Pulse Rate 87 95 64 Pulse Rate [Right Pulse Oximeter] Respiratory Rate 16 16 Blood Pressure 108/68 114/68 100/56 L Blood Pressure [Left Arm] Pulse Oximetry 97 96 98 Oxygen Delivery Method Room Air Oxygen Flow Rate 09/03/24 19:00 09/03/24 20:25 09/03/24 21:00 Temperature 97.6 F Pulse Rate 96 Pulse Rate [Right Pulse Oximeter] Respiratory Rate 16 18 Blood Pressure 101/58 L 103/56 L Blood Pressure [Left Arm] Pulse Oximetry 98 96 Oxygen Delivery Method Room Air Room Air Oxygen Flow Rate 2 09/03/24 23:47 09/04/24 00:51 09/04/24 02:46 Temperature 97.5 F L 97.9 F Pulse Rate Pulse Rate [Right Pulse Oximeter] 98 82 Respiratory Rate 16 16 16 Blood Pressure Blood Pressure [Left Arm] 115/75 102/53 L Pulse Oximetry 95 95 96 Oxygen Delivery Method Room Air Room Air Room Air Oxygen Flow Rate Assessment and Plan Assessment and plan (1) S/P total left hip arthroplasty: Problem details: 09/03/2024, Dr. Izquierdo, no complications Status: Acute Assessment and Plan: Plan for discharge is today, and when they meets discharge criteria. DVT prophylaxis upon discharge includes Xarelto 10mg daily for a total of 5 days, then Aspirin 81mg twice daily for 30 days. Remove dressing 1 week. Observe wound and phone Orthopedics with any questions or concerns Use Ice on operative hip unrestricted. Return to clinic in 7-10 days for a wound check Return to clinic in 6 weeks with surgeon Minimize narcotic use. Wean off and discontinue soon as possible. Activities as tolerated. No strenuous activity. Attend outpt PT
[2024-09-04 08:07] VITALS: BP 110/82; PULSE 88; RESP 16; TEMP 36.5; O2SAT 95
[2024-09-04] MEDS: SENNOSIDES 1 TAB TABLET 2 TAB PO (08:13)
[2024-09-04] MEDS: RIVAROXABAN 10 MG TABLET PO (08:13)
== END 2024-09-04 10:47 | disposition home or self-care (01) ==
LOC: OR 10:10 → MEDSURG 10:10
PROVIDERS: PCP Family Medicine; Visit Provider Orthopaedic Surgery
PROC: (CPT 27130; principal; 2024-09-03 12:15)
DX: M16.12 Unilateral primary osteoarthritis, left hip (principal); G89.18 Other acute postprocedural pain; Z47.2 Encounter for removal of internal fixation device; Z87.81 Personal history of (healed) traumatic fracture; M81.0 Age-related osteoporosis without current pathological fracture; K59.00 Constipation, unspecified
CPT/HCPCS: 27130; 20680; 01214; 36415; 64450; 73501; 76942; 82565; 84132; 84295; 84520; 85025; 86850; 86900; 86901; 97110; 97116; 97161; 97165; 97530; 97535; 99100; A9270; C1776; J0690; J1100; J2250; J2371; J2405; J2704; J2795; J3010; J7120

== ENCOUNTER 2024-10-03 10:15 | Outpatient (RCR) | payer MEDICARE, BC, SELFPAY ==
--- NOTE | 2024-08-27 15:18 | PT.OPEX ---
PT [place] Outpatient Eval PT [facility] Outpatient Eval Start: 08/27/24 10:26 Freq: Status: Active Protocol: Document 08/27/24 10:26 MRS (Rec: 08/27/24 14:56 MRS No Response) E-signed By Kendra Butt DPT Physical Therapy Outpatient Evaluation Insurance Information Recert Due Date 11/24/24 Insurance Name [employer] Medical Diagnosis Unilateral Primary OA, left hip Treating Diagnosis M25.552 Pain in Hip Left M25.652 Stiffness in Hip Left M62.81 Muscle Weakness Referring MD Woodrow Izquierdo Subjective Preferred Name Emily Subjective Initial subjective: Emily presents for pre-op for L NENA on 09/03/24. Emily has a history of L hip fx in 2015 after falling at home in [place], [place]. At that time, pt had pins surgical placed with successful recovery. Recently, Emily has had difficulty walking, standing, and ROM with left hip and has opted to have a L NENA with hardware removal. Emily plans to stay 1 night in the hospital before discharging back to home where she lives with her daughter. Aggravating factors: putting socks on, lifting, reaching, standing, walking Alleviating factors: thc cream PMH: broken hip with pins in 2016, broken elbow, broken ribs, osteoporosis Pt goals: To get up and get around go, go, go and chop wood again. Improve posture and get ROM back Pain Comments 0/10; 7/10 at worst Date of Next Physician Visit 09/11/24 Date of Surgery (If applicable) 09/03/24 Current Work Status Retired Precautions Treatment Precautions/Contraindications osteoporosis Weight Bearing Status Full Weight Bearing Therapy Limitations/Systems Review Not Limited Objective Range of Motion LE ROM (R/L): L hip limited with ER, flexion and abduction Strength LE Strength (R/L): -Knee Ext: R: 5/5, L: 4+/5 -Knee Flex: R: 5/5, L: 5/5 -Hip Abd: WFL -Hip Add: 5/5 -Hip Flx: R: 5/5, L: 4/5 Ankle Strength (R/L): -DF: R: 5/5, L: 5/5 Assessment Assessment/Impression Pt presents with signs and symptoms consistent with left hip osteoarthritis and is awaiting L NENA. DOS: 09/03/24. Anticipated deficits/ impairments in pain, ROM, and strength. Pt would benefit from skilled PT interventions to facilitate return to PLOF and improve strength, range of motion, endurance, and balance to improve functional mobility while limiting pain. Primary Functional Limitations pain, weakness, impaired ROM Plan of Care Rehabilitation Potential Excellent Physical Therapy Goals To Be Met at today's session: 1.) Pt will abide by and be able to verbalize all post- surgical restrictions to allow for adequate healing.? LTG's (12-16 weeks): 1.) Patient will transition from walker to cane to independent gait with normal mechanics.? 2.) Pt will demonstrate 5/5 strength MMT in glut max & glut med to improve dynamic control with SLS activities and gait.? Coordination/Communication With Referral Source,Patient Caregiver Treatment Plan/Direct Interventions Gait Training,Ice/Cold/ Vasopneumatic,Manual Therapy, Neuromuscular Re-ed, Therapeutic Activities, Therapeutic Exercises Frequency/Duration 1-2x/week for 6-8 weeks Patient Will Be Discharged From Therapy Completion of LTG(s),Skills Plateau,Independent w/HEP, Independently Progressing Evaluation Billing Untimed Code Treatment Minutes 30 PT Eval No Charge No Complexity Low Certification Information Initial Certification Date 08/27/24 Ending Certification Date 11/24/24 Provider Signature Required Yes Provider Signature Shows Agreement With POC & Medical Necessity Physician NPI Number Write NPI# Here Physician Comment/Change : Physician Signature & Date Requested Please Sign/Date Here
== END 2024-10-07 15:55 | disposition home or self-care (01) ==
PROVIDERS: PCP Family Medicine; Visit Provider Orthopaedic Surgery
DX: M16.12 Unilateral primary osteoarthritis, left hip (principal); Z96.642 Presence of left artificial hip joint; M25.552 Pain in left hip; M25.652 Stiffness of left hip, not elsewhere classified; M62.81 Muscle weakness (generalized); Z51.89 Encounter for other specified aftercare
CPT/HCPCS: 97110; 97112; 97140; 97161; 97530